=== PATIENT | male | born 1960 | race Caucasian/White ===

== ENCOUNTER 2021-08-12 14:54 | Outpatient (CLI) | payer BC, SELFPAY ==
[2021-08-12 18:53] LABS: Hematocrit 37.6 % (42.0-52.0); Hemoglobin 12.9 g/dL (14.0-18.0); Mean Corpuscular HGB Conc 34.3 g/dl (32-36); Mean Corpuscular Hemoglobin 34.6 pg (26-34); Mean Corpuscular Volume 100.8 fl (80-100); Platelet Count Result 269 k/mm3 (150-375); Red Blood Count 3.73 M/mm3 (4.6-6.20); Red Cell Distribution Width 13.7 % (11.5-14.5); White Blood Count 5.7 K/mm3 (4.5-10.0)
[2021-08-12 19:13] LABS: Alanine Aminotransferase 37 U/L (4-50); Albumin Level 4.1 g/dL (3.5-5.1); Alkaline Phosphatase 70 U/L (38-126); Anion Gap 8 mmol/L (8-16); Aspartate Amino Transferase 43 U/L (17-59); Bilirubin,Total 0.7 mg/dL (0.2-1.3); Blood Urea Nitrogen 12 mg/dL (9-20); Calcium 8.9 mg/dL (8.4-10.2); Carbon Dioxide 31 mmol/L (22-30); Chloride 98 mmol/L (98-107); Estimated Glomerular Filt Rate > 60; Glucose 102 mg/dL (65-110); Potassium 3.7 mmol/L (3.4-5.0); Sodium 137 mmol/L (137-145)
[2021-08-12 19:44] LABS: Hemoglobin A1C 4.9 % (<5.7)
== END 2021-08-12 14:55 | disposition home or self-care (01) ==
LOC: ANHBWCLAB 14:57
PROVIDERS: PCP Family Medicine; Visit Provider Family Medicine
DX: R20.0 Anesthesia of skin (principal); R20.2 Paresthesia of skin
CPT/HCPCS: 36415; 80053; 82607; 83036; 85027

== ENCOUNTER 2021-08-19 14:02 | Outpatient (CLI) | payer BC, SELFPAY ==
--- NOTE | ~2021-08-19 | US_ITS ---
EXAMINATION: US arterial ankle brachial ind DATE: 08/19/2021 14:52 INDICATION: Anesthesia of skin in the lower limbs. Claudication. TECHNIQUE: Segmental pressures and plethysmographic and Doppler waveforms of the brachial and lower e xtremity arteries were obtained. COMPARISON: None. FINDINGS: Right and left brachial artery pressures of 125 mm Hg and 133 mm Hg, respectively, are concordant (no rmal difference <= 30 mmHg). The right ankle-brachial index (MALINDA) is 1.27 (normal >= 0.9-1.0). The right great toe-brachial index (TBI) is 0.53 (normal >= 0.65). Arterial Doppler waveforms are triphasic at both the right posterior tibial and dorsalis pedis arteries. The left MALINDA is 1.34. The left TBI is 0.95. Arterial Doppler waveforms are biphasic at the left poste rior tibial and triphasic at the left dorsalis pedis arteries, both with brisk systolic upstrokes. IMPRESSION: 1. Mild arterial occlusive disease to the right lower limb with mildly decreased right TBI but normal ABIs. 2. No significant arterial occlusive disease to left lower limb with normal left MALINDA and TBI. Reviewed, dictated and finalized at location A. IMPRESSION: 1. Mild arterial occlusive disease to the right lower limb with mildly decrease d right TBI but normal ABIs. 2. No significant arterial occlusive disease to left lower limb with normal lef t MALINDA and TBI.
== END 2021-08-19 14:03 | disposition home or self-care (01) ==
PROVIDERS: PCP Family Medicine; Visit Provider Family Medicine
DX: R20.0 Anesthesia of skin (principal); R20.2 Paresthesia of skin; I73.9 Peripheral vascular disease, unspecified
CPT/HCPCS: 93922

== ENCOUNTER 2021-09-23 09:54 | Outpatient (CLI) | payer BC, SELFPAY ==
--- NOTE | 2021-09-23 11:00 | NEURO_ITS ---
Impression: # Complains of numbness and gait dysfunction. # Severe neuropathy involving the lower extremities. # Needle/EMG exam revealed neurogenic changes in muscles tested. Nerve Conduction Studies Anti Sensory Summary Table Stim Site NR Peak (ms) P-T Amp (?V) Site1 Site2 Delta-P (ms) Dist (cm) Umer (m/s) Left Sup Fibular Anti Sensory (Ant Lat Mall) NO RESPONSE 14 cm NR 14 cm Ant Lat Mall 16.0 Right Sup Fibular Anti Sensory (Ant Lat Mall) NO RESPONSE 14 cm NR 14 cm Ant Lat Mall 16.0 Left Sural Anti Sensory (Lat Mall) NO RESPONSE Calf NR Calf Lat Mall 16.0 Right Sural Anti Sensory (Lat Mall) NO RESPONSE Calf NR Calf Lat Mall 16.0 Motor Summary Table Stim Site NR Onset (ms) O-P Amp (mV) Site1 Site2 Delta-0 (ms) Dist (cm) Umer (m/s) Left Peroneal Motor (Vastus Med) NO RESPONSE Ankle NR Popit NR Right Peroneal Motor (Vastus Med) NO RESPONSE Ankle NR Popit Ankle 0.0 Popit NR Left Tibial Motor (Abd Reece Brev) Ankle 8.4 0.1 Knee Ankle 12.2 43.0 35 Knee 20.6 0.3 Right Tibial Motor (Abd Reece Brev) Ankle 9.6 0.1 Knee Ankle 11.1 42.0 38 Knee 20.7 0.4 F Wave Studies NR F-Lat (ms) L-R F-Lat (ms) Left Peroneal (Mrkrs) (EDB) NO RESPONSE NR Right Peroneal (Mrkrs) (EDB) NO RESPONSE NR Left Tibial (Mrkrs) (Abd Hallucis) NO RESPONSE NR Right Tibial (Mrkrs) (Abd Hallucis) NO RESPONSE NR EMG Side Muscle Nerve Root Ins Act Fibs Amp Dur Recrt Comment Right AntTibialis Dp Br Fibular L4-5 Nml Nml Nml Nml Nml Right Gastroc Tibial S1-2 Nml Nml Nml >12ms Reduced Right Fibularis Long Sup Br Fibular L5-S1 Nml Nml Nml >12ms Reduced Right Flex Dig Long Tibial L5-S2 Nml Nml Nml >12ms Reduced Right Ext Dig Brev Dp Br Fibular L5, S1 Nml Nml Nml >12ms Reduced Left AntTibialis Dp Br Fibular L4-5 Nml Nml Nml Nml Nml Left Gastroc Tibial S1-2 Nml Nml Nml >12ms Reduced Left Fibularis Long Sup Br Fibular L5-S1 Nml Nml Nml >12ms Reduced Left Flex Dig Long Tibial L5-S2 Nml Nml Nml >12ms Reduced Left Ext Dig Brev Dp Br Fibular L5, S1 Nml Nml Nml >12ms Reduced MTDD
== END 2021-09-23 09:55 | disposition home or self-care (01) ==
LOC: ANHNEURO 09:57
PROVIDERS: PCP Family Medicine; Visit Provider Family Medicine
DX: R20.9 Unspecified disturbances of skin sensation (principal); R20.0 Anesthesia of skin; R20.2 Paresthesia of skin; G62.9 Polyneuropathy, unspecified
CPT/HCPCS: 95886; 95910

== ENCOUNTER 2021-10-06 15:33 | Outpatient (CLI) | payer BC, SELFPAY ==
[2021-10-07 09:58] LABS: Hematocrit 43.3 % (42.0-52.0); Hemoglobin 13.3 g/dL (14.0-18.0); Mean Corpuscular HGB Conc 30.7 g/dl (32-36); Mean Corpuscular Hemoglobin 35.2 pg (26-34); Mean Corpuscular Volume 114.6 fl (80-100); Mean Platelet Volume 10.4 fl (7.4-10.4); Platelet Count Result 112 k/mm3 (150-375); Red Blood Count 3.78 M/mm3 (4.6-6.20); Red Cell Distribution Width 15.9 % (11.5-14.5); White Blood Count 4.2 K/mm3 (4.5-10.0)
[2021-10-07 14:22] LABS: Iron 157 ug/dL (49-181)
[2021-10-07 14:49] LABS: Percent Iron Saturation 64 % (20-50)
[2021-10-11 07:41] LABS: GGT 164 U/L (3-85)
== END 2021-10-06 15:34 | disposition home or self-care (01) ==
LOC: ANHBWCLAB 15:35
PROVIDERS: PCP Family Medicine; Visit Provider Family Medicine
DX: D64.9 Anemia, unspecified (principal); F10.10 Alcohol abuse, uncomplicated; R20.0 Anesthesia of skin; R20.2 Paresthesia of skin; R26.81 Unsteadiness on feet
CPT/HCPCS: 36415; 82977; 83540; 83550; 85027

== ENCOUNTER 2021-11-10 13:56 | Outpatient (CLI) | payer BC, SELFPAY ==
--- NOTE | ~2021-11-10 | CT_ITS ---
EXAMINATION: CT brain wo con DATE: 11/10/2021 14:34 INDICATION: Unsteady gait. Left arm weakness. TECHNIQUE: Computed tomography (CT) of the head was performed without intravenous contrast. The mA wa s adjusted according to patient size. Iterative reconstruction technique was employed. The dose-lengt h product was 605.33 mGy-cm. COMPARISON: None FINDINGS: There is no intracranial hemorrhage, acute infarction, or abnormal intracranial mass lesion . The ventricles are normal in size. The orbits are normal. There is mild mucosal thickening in the paranasal sinuses. The mastoid air cells are normal. IMPRESSION: 1. Normal brain. Reviewed, dictated and finalized at location B. IMPRESSION: 1. Normal brain.
== END 2021-11-10 13:57 | disposition home or self-care (01) ==
PROVIDERS: PCP Family Medicine; Visit Provider Family Medicine
DX: R26.81 Unsteadiness on feet (principal); F10.10 Alcohol abuse, uncomplicated; D64.9 Anemia, unspecified; R20.0 Anesthesia of skin; R20.2 Paresthesia of skin
CPT/HCPCS: 70450

== ENCOUNTER 2022-01-12 10:39 | Outpatient (CLI) | payer BC, SELFPAY ==
[2022-01-12 18:29] LABS: Basophils Percent Auto 0.5 % (0.2-1.2); Eosinophils Absolute Auto 0.1 K/mm3 (0-0.3); Eosinophils Percent Auto 1.1 % (0-4.4); Hematocrit 41.7 % (42.0-52.0); Hemoglobin 13.8 g/dL (14.0-18.0); Immature Granulocyte Absolute 0.02 K/mm3 (0.00-0.031); Immature Granulocyte Percent A 0.4 % (0-0.5); Immature Platelet Fraction Pct 9.5 % (0.9-11.2); Lymphocytes Absolute Auto 1.81 K/mm3 (0.9-3.2); Lymphocytes Percent Auto 32.7 % (18.3-44.2); Mean Corpuscular HGB Conc 33.1 g/dl (32-36); Mean Corpuscular Hemoglobin 33.3 pg (26-34); Mean Corpuscular Volume 100.5 fl (80-100); Mean Platelet Volume 11.4 fl (7.4-10.4); Monocytes Absolute Auto 0.7 K/mm3 (0.1-0.6); Neutrophils Absolute Auto 2.9 K/mm3 (1.3-6.7); Neutrophils Percent Auto 52.3 % (45.5-73.1); Platelet Count Result 93 k/mm3 (150-375); Red Blood Count 4.15 M/mm3 (4.6-6.20); Red Cell Distribution Width 15.5 % (11.5-14.5); White Blood Count 5.5 K/mm3 (4.5-10.0)
[2022-01-12 18:51] LABS: Ovalocytes 1+ (NORMAL)
== END 2022-01-12 10:40 | disposition home or self-care (01) ==
LOC: ANHBWCLAB 10:40
PROVIDERS: PCP Family Medicine; Visit Provider Family Medicine
DX: D69.6 Thrombocytopenia, unspecified (principal)
CPT/HCPCS: 36415; 85025; 85055

== ENCOUNTER 2022-07-27 11:36 | Outpatient (CLI) | payer BC, SELFPAY ==
[2022-07-27 20:41] LABS: Hematocrit 43.2 % (42.0-52.0); Mean Corpuscular HGB Conc 32.4 g/dl (32-36); Mean Corpuscular Hemoglobin 31.8 pg (26-34); Mean Corpuscular Volume 98.2 fl (80-100); Mean Platelet Volume 9.3 fl (7.4-10.4); Platelet Count Result 247 k/mm3 (150-375); Red Cell Distribution Width 13.3 % (11.5-14.5); White Blood Count 7.2 K/mm3 (4.5-10.0)
== END 2022-07-27 11:37 | disposition home or self-care (01) ==
LOC: ANHBWCLAB 11:37
PROVIDERS: PCP Family Medicine; Visit Provider Family Medicine
DX: D69.6 Thrombocytopenia, unspecified (principal); D64.9 Anemia, unspecified
CPT/HCPCS: 36415; 85027

== ENCOUNTER 2022-08-02 15:58 | Outpatient (CLI) | payer BC, SELFPAY ==
[2022-08-02 16:15] LABS: Basophils Percent Auto 0.4 % (0.2-1.2); Eosinophils Absolute Auto 0.2 K/mm3 (0-0.3); Eosinophils Percent Auto 2.2 % (0-4.4); Hematocrit 44.5 % (42.0-52.0); Immature Granulocyte Absolute 0.03 K/mm3 (0.00-0.031); Immature Granulocyte Percent A 0.4 % (0-0.5); Lymphocytes Absolute Auto 2.02 K/mm3 (0.9-3.2); Lymphocytes Percent Auto 28.1 % (18.3-44.2); Mean Corpuscular HGB Conc 33.7 g/dl (32-36); Mean Corpuscular Hemoglobin 31.9 pg (26-34); Mean Corpuscular Volume 94.7 fl (80-100); Mean Platelet Volume 9.2 fl (7.4-10.4); Monocytes Absolute Auto 0.7 K/mm3 (0.1-0.6); Monocytes Percent Auto 9.2 % (2.6-8.5); Neutrophils Absolute Auto 4.3 K/mm3 (1.3-6.7); Neutrophils Percent Auto 59.7 % (45.5-73.1); Platelet Count Result 246 k/mm3 (150-375); Red Cell Distribution Width 13.1 % (11.5-14.5); White Blood Count 7.2 K/mm3 (4.5-10.0)
[2022-08-02 16:50] LABS: Iron 107 ug/dL (49-181)
[2022-08-02 16:53] LABS: Alanine Aminotransferase 16 U/L (6-50); Albumin Level 4.6 g/dL (3.5-5.1); Alkaline Phosphatase 79 U/L (38-126); Anion Gap 7 mmol/L (8-16); Aspartate Amino Transferase 39 U/L (17-59); Bilirubin,Total 0.6 mg/dL (0.2-1.3); Blood Urea Nitrogen 20 mg/dL (9-20); Calcium 9.4 mg/dL (8.4-10.2); Carbon Dioxide 28 mmol/L (22-30); Chloride 102 mmol/L (98-107); Estimated Glomerular Filt Rate > 60; Glucose 107 mg/dL (65-110); Potassium 4.8 mmol/L (3.4-5.0); Sodium 137 mmol/L (137-145)
[2022-08-02 17:06] LABS: Percent Iron Saturation 27 % (20-50)
[2022-08-02 18:35] LABS: Folic Acid 11.1 ng/mL (2.76->20)
[2022-08-08 14:36] LABS: Reference Lab Test Result Negative
== END 2022-08-02 15:59 | disposition home or self-care (01) ==
LOC: ANHLAB 16:01
PROVIDERS: PCP Family Medicine; Visit Provider Internal Medicine Hematology & Oncology
DX: D69.59 Other secondary thrombocytopenia (principal)
CPT/HCPCS: 36415; 80053; 82607; 82728; 82746; 83540; 83550; 85025; 86023

== ENCOUNTER 2022-08-15 14:10 | Outpatient (CLI) | payer BC, SELFPAY ==
[2022-08-15 19:52] LABS: Cholesterol 173 mg/dL (0-200); HDL Direct 73 mg/dL; Triglycerides 67 mg/dL (<150)
[2022-08-15 20:03] LABS: LDL Cholesterol Direct 60 mg/dL
[2022-08-15 20:12] LABS: D Dimer 1.04 ug/mL (<0.48)
[2022-08-15 20:22] LABS: Prostate Specific Antigen 0.5 ng/mL (< OR = 4.0)
== END 2022-08-15 14:11 | disposition home or self-care (01) ==
LOC: ANHBWCLAB 14:12
PROVIDERS: PCP Family Medicine; Visit Provider Family Medicine
DX: Z00.00 Encounter for general adult medical examination without abnormal findings (principal); M79.89 Other specified soft tissue disorders; D69.6 Thrombocytopenia, unspecified; R26.81 Unsteadiness on feet; F10.10 Alcohol abuse, uncomplicated; D64.9 Anemia, unspecified; R20.0 Anesthesia of skin; R20.2 Paresthesia of skin; M21.371 Foot drop, right foot; M21.372 Foot drop, left foot
CPT/HCPCS: 36415; 80061; 84153; 85380; G0103

== ENCOUNTER 2022-08-16 14:57 | Outpatient (CLI) | payer BC, SELFPAY ==
--- NOTE | ~2022-08-16 | US_ITS ---
EXAMINATION: US venous doppler [facility] DATE: 08/16/2022 15:42 INDICATION: Left lower limb swelling TECHNIQUE: Mcdermott scale images without and with compression and Doppler images of the left lower extrem ity veins were obtained. COMPARISON: None FINDINGS: The left common femoral vein, profunda femoral vein, femoral vein, popliteal vein, peroneal trunk, posterior tibial veins, and greater saphenous vein are patent. IMPRESSION: 1. Patent left lower extremity veins. No evidence of deep venous thrombosis. Reviewed, dictated and finalized at location L.
== END 2022-08-16 14:58 | disposition home or self-care (01) ==
PROVIDERS: PCP Family Medicine; Visit Provider Family Medicine
DX: M79.89 Other specified soft tissue disorders (principal); R79.89 Other specified abnormal findings of blood chemistry
CPT/HCPCS: 93971

== ENCOUNTER 2022-09-13 12:18 | Outpatient (CLI) | payer BC, SELFPAY ==
--- NOTE | ~2022-09-13 | US_ITS ---
Abdominal Sonogram: Real-time sonographic imaging of the abdomen was performed. Clinical History: Secondary thrombocytopenia Findings: The liver appears echogenic, with no evidence of mass lesion or bile duct dilatation. Main portal vein demonstrates normal direction of flow. The spleen is normal in size without evidence of focal lesion. The gallbladder is well distended, and appears normal with no evidence of gallstone or wall thickening. The common bile duct measures 2 mm. The pancreas, aorta, and IVC are obscured by b owel gas shadowing. The right kidney measures 12.1 cm in length and the left kidney measures 12.3 cm . There is no hydronephrosis or renal calculus. Impression: Diffuse fatty infiltration of the liver. Reviewed, dictated and finalized at location . Impression: Diffuse fatty infiltration of the liver.
== END 2022-09-13 12:19 | disposition home or self-care (01) ==
PROVIDERS: PCP Family Medicine; Visit Provider Internal Medicine Hematology & Oncology
DX: D69.59 Other secondary thrombocytopenia (principal); K76.0 Fatty (change of) liver, not elsewhere classified
CPT/HCPCS: 76700

== ENCOUNTER 2024-07-03 09:01 | Outpatient (CLI) | payer BC, SELFPAY ==
--- NOTE | ~2024-07-03 | XR_ITS ---
EXAMINATION: XR chest 2V DATE: 07/03/2024 09:11 INDICATION: Cough and fever and wheezing. Other specified symptoms and signs involving the respirator y system. TECHNIQUE: Frontal and lateral views of the chest were obtained. COMPARISON: Chest 2 views 04/16/2018 FINDINGS: There is no pneumonia, pleural effusion, or pneumothorax. The heart size is normal. There a re prominent pericardial fat pads. An electronic implant overlies the heart. There are changes of pos terior fusion procedure in lower thoracic spine. IMPRESSION: 1. No acute cardiopulmonary disease. Reviewed, dictated and finalized at location A. ARATORY TECHNICIAN
== END 2024-07-03 09:02 | disposition home or self-care (01) ==
LOC: MICIMG 09:03
PROVIDERS: PCP Family Medicine; Visit Provider Nurse Practitioner Family
DX: R09.89 Other specified symptoms and signs involving the circulatory and respiratory systems (principal)
CPT/HCPCS: 71046